=== PATIENT | female | born 1990 | race Caucasian/White ===

== ENCOUNTER 2023-08-08 14:45 | Emergency (ER) | payer MEDICAID ==
[~2023-08-08] VITALS: Ht 157.5 cm; Wt 69.0 kg
[2023-08-08 14:58] VITALS: BP 128/83; PULSE 79; RESP 16; TEMP 98.6; O2SAT 100
== END 2023-08-08 16:56 | disposition left against medical advice (07) ==
LOC: ER 14:45
DX: R68.89 Other general symptoms and signs (principal); Z53.21 Procedure and treatment not carried out due to patient leaving prior to being seen by health care provider